=== PATIENT | male | born 2000 | race African-American/Black ===

== ENCOUNTER 2018-09-28 16:48 | Emergency (ER) | payer OTHER ==
[2018-09-28] MEDS ORDERED: LORazepam 2 MG/ML VIAL (J2060) IV STA (16:59)
[2018-09-28] MEDS ORDERED: NS 1,000 ML IV ONE (17:00)
[2018-09-28 17:25] LABS: BASO # 0.1 10^3/uL (0.0-0.2); BASO % 0.4 % (0.0-1.0); EOS # 0.1 10^3/uL (0.0-0.50); EOS % 0.7 % (0.0-3.0); HEMATOCRIT 44.1 % (42.0-52.0); HEMOGLOBIN 14.7 g/dl (13.5-17.5); LYMPH # 1.9 10^3/uL (1.5-6.5); LYMPH % 14.2 % (24.0-44.0); MEAN CORPUSCULAR HEMOGLOBIN 26.8 pg (27.0-33.0); MEAN CORPUSCULAR HGB CONC 33.3 g/dl (32.0-36.5); MEAN CORPUSCULAR VOLUME 80.3 fl (80.0-96.0); MONO # 1.2 10^3/uL (0.0-0.8); MONO % 8.9 % (0.0-5.0); NEUTROPHILS # 10.3 10^3/uL (1.8-7.7); NEUTROPHILS % 75.7 % (36.0-66.0); PLATELET COUNT, AUTOMATED 221 10^3/uL (150-450); RED BLOOD COUNT 5.49 10^6/uL (4.30-6.10); WHITE BLOOD COUNT 13.6 10^3/uL (4.0-10.0)
--- NOTE | 2018-09-28 17:35 | REP ---
Clinical: Left-sided chest pain . Comparison: None . Findings: The mediastinum and cardiac silhouette are stable and within normal limits for portable technique. The lung soto are clear without acute consolidation, effusion, or pneumothorax. Skeletal structures are intact. Impression: No acute cardiopulmonary process appreciated. Electronically Signed by Sebastián Hinkle MD 09/28/2018 05:26 P
[2018-09-28 17:44] LABS: BLOOD UREA NITROGEN 18 MG/DL (7-18); CALCIUM LEVEL 9.7 MG/DL (8.5-10.1); CARBON DIOXIDE LEVEL 24 MEQ/L (21-32); CHLORIDE LEVEL 105 MEQ/L (98-107); CREATININE FOR GFR 1.36 MG/DL (0.70-1.30); GLUCOSE, FASTING 93 MG/DL (70-100); POTASSIUM SERUM 3.5 MEQ/L (3.5-5.1); SODIUM LEVEL 141 MEQ/L (136-145)
[2018-09-28 18:15] VITALS: BP 107/55
--- NOTE | 2018-09-28 19:23 | ECGEPIP ---
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
== END 2018-09-28 18:35 | disposition home or self-care (01) ==
LOC: EDBD 16:48 → M ED 16:48
DX: R10.11 Right upper quadrant pain (principal); R06.4 Hyperventilation
CPT/HCPCS: 71045; 80048; 85025; 93005; 96374; 99284; J2060

== ENCOUNTER 2018-09-30 17:43 | Inpatient (IN) | payer OTHER ==
[~2018-09-30] VITALS: Ht 182.9 cm; Wt 68.2 kg
[2018-09-30] MEDS ORDERED: HYDR-3363 PO ×2 (17:55→21:03)
[2018-09-30] MEDS ORDERED: LEXA1TAB PO (17:55)
[2018-09-30 18:45] LABS: HEMOGLOBIN 14.5 g/dl (13.5-17.5); MEAN CORPUSCULAR HEMOGLOBIN 27.1 pg (27.0-33.0); MEAN CORPUSCULAR VOLUME 82.1 fl (80.0-96.0); PLATELET COUNT, AUTOMATED 215 10^3/uL (150-450); RED BLOOD COUNT 5.36 10^6/uL (4.30-6.10); WHITE BLOOD COUNT 8.6 10^3/uL (4.0-10.0)
[2018-09-30 19:06] LABS: AMPHETAMINES LEVEL URINE NEGATIVE (NEGATIVE); BARBITURATES URINE NEGATIVE (NEGATIVE); BENZODIAZEPINES URINE NEGATIVE (NEGATIVE); CANNABINOIDS URINE NEGATIVE (NEGATIVE); COCAINE METABOLITE URINE NEGATIVE (NEGATIVE); METHADONE URINE NEGATIVE (NEGATIVE); OPIATES URINE NEGATIVE (NEGATIVE); PHENCYCLIDINE URINE NEGATIVE (NEGATIVE)
[2018-09-30 19:32] LABS: ACETAMINOPHEN LEVEL < 2.0 UG/ML (10.0-30.0); ALBUMIN 4.5 GM/DL (3.2-5.2); ALT/SGPT 19 U/L (12-78); BILIRUBIN,DIRECT 0.1 MG/DL (0.0-0.2); BILIRUBIN,TOTAL 0.6 MG/DL (0.2-1.0); BLOOD UREA NITROGEN 15 MG/DL (7-18); CARBON DIOXIDE LEVEL 31 MEQ/L (21-32); CHLORIDE LEVEL 105 MEQ/L (98-107); CREATININE FOR GFR 1.12 MG/DL (0.70-1.30); ETHYL ALCOHOL (ETHANOL) < 0.003 % (0.000-0.010); GLUCOSE, FASTING 84 MG/DL (70-100); SALICYLATE LEVEL < 1.7 MG/DL (5.0-30.0); SODIUM LEVEL 140 MEQ/L (136-145); TOTAL PROTEIN 7.4 GM/DL (6.4-8.2)
[2018-09-30] MEDS ORDERED: MAALOX 30 ML SUSP *UDC PO PRN (21:45)
[2018-09-30] MEDS ORDERED: traZODone 50 MG TAB PO PRN (21:45)
[2018-09-30] MEDS ORDERED: ACETAMINOPHEN TAB 650MG DOSE (2X325MG) PO PRN (21:45)
[2018-09-30] MEDS ORDERED: MOM 30ML SUSPENSION UDC PO PRN (21:45)
--- NOTE | 2018-09-30 22:17 | ECGEPIP ---
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
[2018-09-30 23:57] VITALS: BP 124/65
[2018-10-01] MEDS ORDERED: NICOTINE 21MG/24HR 1 EA TRANSDERMAL TD PRN
[2018-10-01 06:33] VITALS: BP 121/71
--- NOTE | 2018-10-01 07:18 | ECGEPIP ---
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
[2018-10-01 12:00] VITALS: BP 116/62
--- NOTE | 2018-10-01 12:32 | MHHPEPDOC ---
General Date Of Admission: Sep 30, 2018 Legal Status: 9.39 Chief Complaint "I had a panic attack and was feeling suicidal." History of Present Illness HISTORY OF THE PRESENT ILLNESS: Patient is a 17 -year-old , AD, male, with a history of depression/anxiety who was brought to ED by escort due to endorsing a panic attack the night prior with lightheadedness, dizziness, and SI secondary to multiple psychosocial stresses. Pt stated in the ED that he is involved in a CPS case with his step-mother for custody of his younger siblings b/c he believes she is an unfit parent that yells a lot at them. Also stated, a childhood friend committed suicide over the weekend which caused SI briefly due to wanting to know how his friend felt before he , fiance breaking up with him recently due to not wanting to be apart of [place] lifestyle. Per ED pt reportedly researching ways to OD on his current med lexapro and vistaril which pt stated he was looking up to know how much he could take safely without overdosing and no to commit suicide. He endorsed insomnia due to no longer talking to his fiance on the phone while falling asleep at night. Psychiatric Review of Systems Depression (2 or more weeks): depressed mood, insomnia/hypersomnia (insomnia), difficulty concentrating, suicidal thoughts Tamar (4 or more days of): denies Psychosis: denies PTSD: denies Anxiety: situational anxiety, stressor related anxiety, panic attacks Anxiety/ 6 months or more of: restlessness, keyed up, difficulty concentrating, irritability, sleep disturbance Past Psychiatric History Previous Psychiatric Diagnosis: depression, panic attack Previous Psychiatric Admissions: denies Suicide Attempts: denies Psychiatric Follow-up: [facility] Psychiatric medications: lexapro, vistaril Past Medical History Medical Problems denies Head Injury: No Seizures: No Hospitalizations: No Surgeries: No Family Medical/Psychiatric HX Medical Problems noncontributory Psychiatric Disorders: Yes (mother- depression, anxiety) Addiction: No Suicide Attemps/Completions: No Addiction History nicotine (vapes daily) Social History Childhood: Born and raised in [place], adopted by aunt and uncle at age 1 due to mother leaving for the and father being incarcerated. States he had a good childhood. had several close friends and apart of cheerleading squad in high school. 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 Social Support: fiance,, aunt, uncle, friends [place], [place] Legal: cps case with his step-mother for custody of his young siblings due to belief she's an unfit parent Marital: single, never Mental Status Examination General Appearance: well groomed, appears stated age, hospital scubs/clothing Build: average Demeanor: average, withdrawn Eye Contact: average Activity: average, anxious Behavior: cooperative Speech: clear, spontaneous, reg/rate,rhythm,volume Mood: anxious, irritable Mood fine Affect: congruent, anxious Thought Process: logical/linear, intact, other (worrisome thoughts) Thought Content (Delusions): none reported, denies SI, HI, AVH Thought Content (Other): none reported, appropriate Thought Content (Aggressive): none reported Perception (Hallucinations): none reported Perception (Other): none reported Cognition (Impairment of): none reported Cognition(Intelligence Est.): average Oriented: Awake, Alert, Oriented times three Insight: fair Judgment: Fair Psychosis: Denies Diagnoses Anxiety d/o unspecified Panic d/o w/o agoraphobia R/O adjustment d/o with anxiety and depression Assessment Pt seen and states he here b/c "my unit believes I'm suicidal." When asked admits he has had thoughts that have crossed his mind in the past of falling asleep and not waking up but states "I would not kill myself." States he last had passive SI 2 nights ago mostly b/c he just wanted go sleep due to having insomnia secondary to fighting with my mom and fiance. States he feels fine today and just wants to go home and call his siblings. Endorses panic attacks and states vistaril is helpful. Denies SI/HI, hallucinations, delusions. Would like to restart his outpatient meds as the are beneficial. Feels safe here. Initial Treatment Plan 1. Patient was admitted on a 9.39 status. 2. Complete history was obtained. 3. With patients permission, family will be contacted and database will be expanded. 4. Patients medication regimen will be reviewed and changed accordingly. 5. Patient will be provided with protected environment. 6. Patient will be treated with individual, group, and milieu therapies. 7. Patient will receive supportive psych-education. 8. Discharge planning will commence immediately. 9. Outpatient follow-up treatment will be strongly recommended. 10. The initial treatment plan will focus initially on: * Depression. * Risk for suicide. * Substance abuse. 11. restart lexapro and vistaril ESTIMATED LENGTH OF STAY: 3-5 DAYS. TIME SPENT COUNSELING AND COORDINATING INITIAL CARE: 60 minutes. Vital Signs Vital Signs Date Time Temp Pulse Resp B/P (MAP) Pulse Ox O2 Delivery O2 Flow Rate FiO2 10/01/18 08:09 Room Air 10/01/18 06:33 98.0 70 14 121/71 (88) 09/30/18 23:57 99 Laboratory Data 24H Labs Laboratory Tests 2 09/30/18 18:32: Nucleated Red Blood Cells % (auto) 0.0, Anion Gap 4L, Calcium Level 9.0, Aspartate Amino Transf (AST/SGOT) 19, Alanine Aminotransferase (ALT/SGPT) 19, Alkaline Phosphatase 115, Total Bilirubin 0.6, Direct Bilirubin 0.1, Total Protein 7.4, Albumin 4.5, Albumin/Globulin Ratio 1.55, Thyroid Stimulating Hormone (TSH) 1.350, Salicylates Level < 1.7L, Acetaminophen Level < 2.0L, Ethyl Alcohol Level < 0.003 09/30/18 18:35: Urine Amphetamines Screen NEGATIVE, Urine Benzodiazepines Screen NEGATIVE, Urine Opiates Screen NEGATIVE, Urine Methadone Screen NEGATIVE, Urine Barbiturates Screen NEGATIVE, Urine Phencyclidine Screen NEGATIVE, Urine Cocaine Metabolite Screen NEGATIVE, Urine Cannabinoids Screen NEGATIVE CBC/BMP Laboratory Tests 09/30/18 18:32 Red Blood Count 5.36, Mean Corpuscular Volume 82.1, Mean Corpuscular Hemoglobin 27.1, Mean Corpuscular Hemoglobin Concent 33.0, Red Cell Distribution Width 12.6 Medications Scheduled Escitalopram Oxalate (Lexapro) 10 Mg Tab, 10 MG PO DAILY, (Reported) Scheduled PRN Hydroxyzine HCl (Hydroxyzine HCl) 25 Mg Tab, 25 MG PO TID PRN for ANXIETY, (Reported) Allergies Coded Allergies: Penicillins (Verified Allergy, Unknown, 09/28/18) albuterol (Verified Adverse Reaction, Intermediate, INCREASE hr, 09/30/18) CHANTAL MIRELES DO Oct 01, 2018 12:32
--- NOTE | 2018-10-01 12:58 | HPE ---
DATE OF ADMISSION: 10/01/2018 CHIEF COMPLAINT: Inpatient mental health history and physical for hospitalist group. HISTORY: Talita Padron was admitted with suicidal ideation. PAST MEDICAL HISTORY: Essentially benign. He says he has a history of asthma, but I think it is more likely psychiatric origin. He has never been hospitalized for this or use any inhalers. SOCIAL HISTORY: He smokes by vaping daily. 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 FAMILY HISTORY: Mother has a history of depression and anxiety. REVIEW OF SYSTEMS: No hemoptysis, cough, shortness of breath with exertion, chest pain, bowel or genitourinary symptoms PHYSICAL EXAMINATION: VITAL SIGNS: Per flow sheet. HEENT: Unremarkable. LUNGS: Clear. HEART: Regular without murmur. ABDOMEN: Soft, nontender. No masses. No peripheral edema. Good distal pulses. IMPRESSION: No significant medical problems. He has carries a diagnosis of asthma, but it is probably a panic attack, so I do not think he needs an inhaler nor any further medical evaluation for this. Admission chest x-ray was unremarkable.
[2018-10-01 18:00] VITALS: BP 107/56
[2018-10-01 21:00] VITALS: BP 114/62
[2018-10-02 06:35] VITALS: BP 110/61
[2018-10-02] MEDS ORDERED: HYDR-3363 PO (09:04)
[2018-10-02] MEDS ORDERED: LEXA1TAB PO (09:04)
--- NOTE | 2018-10-02 09:05 | MHDSPDOC ---
[facility] Discharge Summary Discharge Summary DATE OF ADMISSION: Sep 30, 2018 at 9:31 pm DATE OF DISCHARGE: October 02, 2018 DISCHARGE DIAGNOSES: Anxiety d/o unspecified Panic d/o w/o agoraphobia R/O adjustment d/o with anxiety and depression REASON FOR ADMISSION: Patient is a 17 -year-old , AD, male, with a history of depression/anxiety who was brought to ED by escort due to endorsing a panic attack the night prior with lightheadedness, dizziness, and SI secondary to multiple psychosocial stresses. Pt stated in the ED that he is involved in a CPS case with his step-mother for custody of his younger siblings b/c he believes she is an unfit parent that yells a lot at them. Also stated, a childhood friend committed suicide over the weekend which caused SI briefly due to wanting to know how his friend felt before he , fiance breaking up with him recently due to not wanting to be apart of lifestyle. Per ED pt reportedly researching ways to OD on his current med lexapro and vistaril which pt stated he was looking up to know how much he could take safely without overd osing and no to commit suicide. He endorsed insomnia due to no longer talking to his fiance on the phone while falling asleep at night. CONSULTANTS INVOLVED: none TREATMENT AND PROGRESS ON THE UNIT : Pt was admitted to [facility], seen for psychiatric assessment and restarted on his outpatient medication lexapro 10mg daily and vistaril 25mg q6hr prn anxiety. He was provided trazodone 50mg qhs prn insomnia. Pt found his medications beneficial and tolerated them well. He attended groups daily during his stay. His symptoms improved with treatment. On day of discharge he denied depression, anxiety, insomnia, SI/HI, hallucinations, delusions. He was discharged home after [facility] meeting with follow-up at [facility]. He felt safe for discharge. DISCHARGE ASSESSMENT: Pt seen and states he feels good and is greatly looking forward to going home with his Dalia today. He appears euthymic, full, and bright. He denies anxiety and panic. Future oriented toward face timing with his younger siblings once he's d/c as is very close to them and cares for them a lot. Also motivated to continue to work to get custody of 2y/o sister from st ep-mother thru CPS. States he attended groups during his stay and found them beneficial. States his mes are beneficial and he's tolerating them well. Slept well last night. Denies depression, anxiety, insomnia, SI/HI, hallucinations, delusions. Feels safe to be d/c home with Dalia. MENTAL STATUS EXAMINATION ON DISCHARGE: General Appearance: well groomed, appears stated age, hospital scrubs/clothing Build: average Demeanor: average Eye Contact: average Activity: average Behavior: cooperative Speech: clear, spontaneous, reg/rate,rhythm,volume Mood: euthymic, full, bright Mood good Affect: euthymic, full, bright Thought Process: logical/linear, intact Thought Content (Delusions): none reported, denies SI, HI, AVH Thought Content (Other): none reported, appropriate Thought Content (Aggressive): none reported Perception (Hallucinations): none reported Perception (Other): none reported Cognition (Impairment of): none reported Cognition(Intelligence Est.): average Oriented: Awake, Alert, Oriented times three Insight: good Judgment: good Psychosis: Denies MEDICATIONS ON DISCHARGE: lexapro 10mg daily vistaril 25mg q6hr prn anxiety PLAN/FOLLOWUP ARRANGEMENTS: D/c home with Dalia with follow-up at [facility]. The amount of time spent in the coordination of care for this patient was appr oximately 30 minutes. Vital Signs/I&Os Vital Signs Date Time Temp Pulse Resp B/P (MAP) Pulse Ox O2 Delivery O2 Flow Rate FiO2 10/02/18 06:35 98.3 62 14 110/61 (77) 10/01/18 08:09 Room Air 09/30/18 23:57 99 Medications Scheduled Escitalopram Oxalate (Lexapro) 10 Mg Tab, 10 MG PO DAILY, (Reported) Scheduled PRN Hydroxyzine HCl (Hydroxyzine HCl) 25 Mg Tab, 25 MG PO TID PRN for ANXIETY, (Reported) Allergies Coded Allergies: Penicillins (Verified Allergy, Unknown, 09/28/18) albuterol (Verified Adverse Reaction, Intermediate, INCREASE hr, 09/30/18) CHANTAL MIRELES DO Oct 02, 2018 9:05 am
== END 2018-10-02 13:50 | disposition home or self-care (01) | DRG 880 ==
LOC: M ED 17:43 → M ED INP 21:31 → M PSY 22:52
PROVIDERS: ADMIT Psychiatry & Neurology Psychiatry; ATTEND Psychiatry & Neurology Psychiatry
DX: F41.9 Anxiety disorder, unspecified (principal); R45.851 Suicidal ideations; F40.01 Agoraphobia with panic disorder; F43.23 Adjustment disorder with mixed anxiety and depressed mood; Z88.0 Allergy status to penicillin; Z88.8 Allergy status to other drugs, medicaments and biological substances; J45.909 Unspecified asthma, uncomplicated

== ENCOUNTER 2018-10-15 12:36 | Emergency (ER) | payer OTHER ==
[~2018-10-15 12:36] MED LIST: HYDR-3363 PO; LEXA1TAB PO
[2018-10-15 13:55] LABS: BASO % 0.5 % (0.0-1.0); EOS # 0.1 10^3/uL (0.0-0.50); EOS % 0.9 % (0.0-3.0); HEMOGLOBIN 14.5 g/dl (13.5-17.5); LYMPH # 1.6 10^3/uL (1.5-6.5); LYMPH % 18.6 % (24.0-44.0); MEAN CORPUSCULAR HEMOGLOBIN 26.7 pg (27.0-33.0); MEAN CORPUSCULAR VOLUME 80.9 fl (80.0-96.0); MONO # 0.8 10^3/uL (0.0-0.8); MONO % 9.3 % (0.0-5.0); NEUTROPHILS # 6.2 10^3/uL (1.8-7.7); NEUTROPHILS % 70.6 % (36.0-66.0); PLATELET COUNT, AUTOMATED 194 10^3/uL (150-450); RED BLOOD COUNT 5.44 10^6/uL (4.30-6.10); WHITE BLOOD COUNT 8.7 10^3/uL (4.0-10.0)
--- NOTE | 2018-10-15 14:09 | REP ---
Chest one-view HISTORY: Chest pain Comparison: 09/28/2018 The lungs are clear. The heart is normal in size. The pulmonary vasculature is normal in appearance. Impression: No acute disease. Electronically Signed by Rajan Tsang MD 10/15/2018 02:00 P
[2018-10-15 14:22] LABS: BLOOD UREA NITROGEN 16 MG/DL (7-18); CALCIUM LEVEL 9.4 MG/DL (8.5-10.1); CARBON DIOXIDE LEVEL 27 MEQ/L (21-32); CHLORIDE LEVEL 107 MEQ/L (98-107); CPK CREATINE PHOSPHOKINASE 137 U/L (39-308); CREATININE FOR GFR 1.01 MG/DL (0.70-1.30); FREE T4 1.08 NG/DL (0.78-1.33); GLUCOSE, FASTING 86 MG/DL (70-100); POTASSIUM SERUM 3.9 MEQ/L (3.5-5.1); SODIUM LEVEL 140 MEQ/L (136-145); THYROID STIMULATING HORMONE 0.784 uIU/ML (0.463-3.98); TROPONIN I < 0.02 NG/ML (< 0.10)
[2018-10-15 16:29] LABS: AMPHETAMINES LEVEL URINE NEGATIVE (NEGATIVE); BARBITURATES URINE NEGATIVE (NEGATIVE); BENZODIAZEPINES URINE NEGATIVE (NEGATIVE); CANNABINOIDS URINE NEGATIVE (NEGATIVE); COCAINE METABOLITE URINE NEGATIVE (NEGATIVE); METHADONE URINE NEGATIVE (NEGATIVE); OPIATES URINE NEGATIVE (NEGATIVE); PHENCYCLIDINE URINE NEGATIVE (NEGATIVE)
[2018-10-15] MEDS ORDERED: IBUPROFEN 600 MG TAB PO ONE (16:45)
[2018-10-15 17:07] VITALS: BP 111/65
--- NOTE | 2018-10-16 21:32 | ECGEPIP ---
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
== END 2018-10-15 17:09 | disposition home or self-care (01) ==
LOC: M ED 12:36
DX: F41.0 Panic disorder [episodic paroxysmal anxiety] (principal); R07.89 Other chest pain; R00.1 Bradycardia, unspecified; F32.9 Major depressive disorder, single episode, unspecified; F41.9 Anxiety disorder, unspecified; Z88.0 Allergy status to penicillin; Z88.8 Allergy status to other drugs, medicaments and biological substances

== ENCOUNTER → 2018-10-22 | Outpatient (CLI) | payer OTHER ==
--- NOTE | 2018-10-22 13:29 | PFTRPT ---
Site: [facility], [address] [place] [address], [id number] ID: [id number] Name: IRINA BLANCA Visit Date: 10/22/2018 Second ID: [id number] Referring Doctor: Marcos Barrow Reviewing Doctor: Kofi Sandy MD Body Former: Francis BRAUN RRT Age: 18 : 2000 Sex: Male Race: Black Height: 72.00 Inches Weight: 145.00 Lbs BSA: 1.86 Order IDs: [id number] Requested Test(s): <RESP-PFT.DLCO> Diagnosis: ASTHMA test meet the ATS standards for acceptability and repeatability. Pt was given four puffs of albuterol for postbronchodilator. Review Status: Not Reviewed Pre-Bronch Post-Bronch Pred Actual %Pred Actual %Chng SPIROMETRY FVC (L) 5.05 5.78 114 5.57 -3 FEV1 (L) 4.29 5.00 116 4.89 -2 FEV1/FVC (%) 86 86 100 88 1 FEF 25% (L/sec) 8.12 7.62 93 7.53 -1 FEF 50% (L/sec) 5.36 5.86 109 5.51 -6 FEF 75% (L/sec) 2.27 3.23 142 3.28 1 FEF 25-75% (L/sec) 4.80 5.37 111 5.11 -4 FEF Max (L/sec) 10.55 7.79 73 8.89 14 FIVC (L) 5.36 5.21 -2 FIF 50% (L/sec) 5.76 5.02 87 5.43 8 FIF Max (L/sec) 5.13 5.54 7 MVV (L/min) 197 118 59 Expiratory Time (sec) 6.58 4.65 -29 Back Extrap Vol (L) 0.18 0.18 1 Time To FEFmax (sec) 0.223 0.122 -45 LUNG VOLUMES SVC (L) 5.75 5.57 96 IC (L) 3.75 3.59 95 ERV (L) 2.00 1.98 99 TGV (L) 3.52 3.92 111 RV (Pleth) (L) 1.52 1.94 127 TLC (Pleth) (L) 7.27 7.51 103 RV/TLC (Pleth) (%) 20 26 129 DIFFUSION DLCOunc (ml/min/mmHg) 38.43 27.15 70 DL/VA (ml/min/mmHg/L) 5.29 3.93 74 VA (L) 7.27 6.92 95 BHT (sec) 10.21 IVC (L) 5.33 TLC (SB) (L) 7.07 AIRWAYS RESISTANCE Raw (cmH2O/L/s) 1.45 0.92 63 Gaw (L/s/cmH2O) 1.03 1.10 107 sRaw (cmH2O*s) 4.76 3.75 78 sGaw (1/cmH2O*s) 0.20 0.27 135
== END ==
LOC: M CARPUL 11:09
PROVIDERS: ATTEND Clinical Nurse Specialist Psychiatric/Mental Health, Adult
DX: J45.40 Moderate persistent asthma, uncomplicated (principal)

== ENCOUNTER 2020-04-26 10:59 | Emergency (ER) | payer OTHER ==
[~2020-04-26] VITALS: Ht 182.9 cm; Wt 66.6 kg
[2020-04-26] MEDS ORDERED: KETOROLAC 30 MG/ML 1ML VIAL IV ONE (11:30)
[2020-04-26] MEDS ORDERED: NS 1,000 ML IV ONE (11:30)
[2020-04-26] MEDS ORDERED: ONDANSETRON 4MG/2ML VIAL IV ONE (11:30)
[2020-04-26 12:28] LABS: BASO % 0.5 % (0.0-1.0); EOS # 0.1 10^3/uL (0.0-0.5); EOS % 1.8 % (0.0-3.0); HEMATOCRIT 51.4 % (42.0-52.0); HEMOGLOBIN 16.3 g/dl (13.5-17.5); LYMPH % 12.6 % (24.0-44.0); MEAN CORPUSCULAR HEMOGLOBIN 26.5 pg (27.0-33.0); MEAN CORPUSCULAR HGB CONC 31.7 g/dl (32.0-36.5); MEAN CORPUSCULAR VOLUME 83.6 fl (80.0-96.0); MONO # 0.8 10^3/uL (0.0-0.8); MONO % 10.8 % (0.0-5.0); NEUTROPHILS # 5.7 10^3/uL (1.5-8.5); NEUTROPHILS % 73.8 % (36.0-66.0); PLATELET COUNT, AUTOMATED 172 10^3/uL (150-450); RED BLOOD COUNT 6.15 10^6/uL (4.30-6.10); WHITE BLOOD COUNT 7.8 10^3/uL (4.0-10.0)
[2020-04-26 13:00] LABS: ALBUMIN 4.8 GM/DL (3.2-5.2); BILIRUBIN,DIRECT 0.1 MG/DL (0.0-0.2); BILIRUBIN,TOTAL 0.8 MG/DL (0.2-1.0); TOTAL PROTEIN 8.6 GM/DL (6.4-8.2)
--- NOTE | 2020-04-26 13:44 | REP ---
INDICATION: RUQ tenderness. COMPARISON: None. TECHNIQUE: Real-time sonographic evaluation of right upper quadrant performed. FINDINGS: The gallbladder demonstrates no evidence of intraluminal sludge or calculi, wall thickening or pericholecystic fluid. There is no intrahepatic or extrahepatic biliary dilatation, common bile duct measures 3 mm in maximum diameter. The liver and pancreas demonstrates homogeneous echotexture with no gross mass. The right kidney demonstrates no hydronephrosis, with a normal size of 10.2 cm in length. No free fluid is seen. IMPRESSION: Negative right upper quadrant ultrasound. <Electronically signed by Jason Guzman > 04/26/20 1811
[2020-04-26] MEDS ORDERED: ISOVUE-370 76% 100ML VIAL As Ordered ONE (14:24)
--- NOTE | 2020-04-26 15:07 | REP ---
INDICATION: right sided abd pain r/o infectious etiology COMPARISON: None. TECHNIQUE: CT Scan of the abdomen and pelvis was performed with intravenous administration of 100 cc of Isovue 370, without oral contrast. FINDINGS: Lung bases: Unremarkable. Liver: Normal Gallbladder: Unremarkable. Spleen: Normal. Adrenals: Normal. Pancreas: Normal. Kidneys: Normal. Small and large bowel: Unremarkable. Free fluid: Mild free fluid in the pelvis. Abdominal aorta: No aneurysm or dissection. Adenopathy: None. Appendix: Not inflamed. Osseous structures: Unremarkable. Pelvis: No mass. Mild free fluid. IMPRESSION: No evidence of appendicitis. No free air. Mild free fluid in the pelvis. Otherwise negative CT abdomen and pelvis. <Electronically signed by Jason Guzman > 04/26/20 [id number]
[2020-04-26 15:42] VITALS: BP 128/82
== END 2020-04-26 15:44 | disposition home or self-care (01) ==
LOC: M ED 10:59
DX: R10.9 Unspecified abdominal pain (principal); R11.0 Nausea; Z88.0 Allergy status to penicillin; Z88.8 Allergy status to other drugs, medicaments and biological substances
CPT/HCPCS: 74177; 76705; 80047; 80076; 81001; 83690; 85025; 96361; 96374; 96375; 99284; J1885; J2405; Q9967

== ENCOUNTER 2020-11-09 11:31 | Emergency (ER) | payer OTHER ==
[~2020-11-09] VITALS: Ht 180.3 cm; Wt 68.7 kg
[2020-11-09] MEDS ORDERED: NS 1,000 ML IV ONE (11:55)
[2020-11-09] MEDS ORDERED: KETOROLAC 30 MG/ML 1ML VIAL IV ONE (11:55)
[2020-11-09 12:21] LABS: BASO % 0.4 % (0.0-1.0); EOS % 0.6 % (0.0-3.0); HEMATOCRIT 43.6 % (42.0-52.0); HEMOGLOBIN 13.8 g/dl (13.5-17.5); LYMPH # 1.1 10^3/uL (1.5-5.0); LYMPH % 14.8 % (24.0-44.0); MEAN CORPUSCULAR HEMOGLOBIN 26.5 pg (27.0-33.0); MEAN CORPUSCULAR HGB CONC 31.7 g/dl (32.0-36.5); MEAN CORPUSCULAR VOLUME 83.7 fl (80.0-96.0); MONO % 13.5 % (2.0-8.0); NEUTROPHILS # 5.1 10^3/uL (1.5-8.5); NEUTROPHILS % 70.4 % (36.0-66.0); PLATELET COUNT, AUTOMATED 171 10^3/uL (150-450); RED BLOOD COUNT 5.21 10^6/uL (4.30-6.10); WHITE BLOOD COUNT 7.2 10^3/uL (4.0-10.0)
--- NOTE | 2020-11-09 12:27 | REP ---
INDICATION: left flank pain, hematuria, weak stream. COMPARISON: 04/26/2020 a contrast-enhanced exam TECHNIQUE: There is no evidence of an acute fracture or destructive osseous lesion. The mortise is within normal limits FINDINGS: The lung bases are clear. Limited evaluation of the solid intra-organs and gallbladder show no abnormalities. Limited evaluation of the pancreas, adrenal glands, and kidneys show no abnormalities. There is no nephroureterolithiasis, hydronephrosis, or hydroureter. There are no urinary bladder calcifications. There is no free fluid or free air. The appendix is within normal limits. Bone window technique throughout the examination shows the osseous structures to be within normal limits. IMPRESSION: CT findings are within normal limits. <Electronically signed by Destin Mora > 11/09/20 1540
[2020-11-09 12:49] LABS: BLOOD UREA NITROGEN 9 MG/DL (7-18); CALCIUM LEVEL 9.7 MG/DL (8.5-10.1); CARBON DIOXIDE LEVEL 30 MEQ/L (21-32); CHLORIDE LEVEL 106 MEQ/L (98-107); CREATININE FOR GFR 0.98 MG/DL (0.70-1.30); GLOMERULAR FILTRATION RATE > 60.0 (>60); GLUCOSE, FASTING 84 MG/DL (70-100); POTASSIUM SERUM 3.8 MEQ/L (3.5-5.1); SODIUM LEVEL 140 MEQ/L (136-145)
--- NOTE | 2020-11-09 14:34 | REP ---
INDICATION: left testicular pain. COMPARISON: None. TECHNIQUE: Real-time sonographic evaluation of scrotum and contents performed. FINDINGS: The testicles are normal in size and echotexture, right testicle measuring 4.8 x 2.1 x 2.8 cm and left testicle 4.2 x 1.9 x 2.9 cm. There is no testicular mass or torsion. Blood flow is seen in each testicle with duplex Doppler evaluation. 2 cysts are seen in the head of the right epididymis, measuring 5 mm and 3 mm in diameter. IMPRESSION: No testicular mass or torsion. <Electronically signed by Jason Guzman > 11/09/20 [id number]
[2020-11-09 15:00] VITALS: BP 120/62
== END 2020-11-09 15:26 | disposition home or self-care (01) ==
LOC: M ED 11:31
DX: N39.0 Urinary tract infection, site not specified (principal); F17.200 Nicotine dependence, unspecified, uncomplicated
CPT/HCPCS: 74176; 76870; 80048; 81001; 85025; 87086; 93976; 96374; 99284; J1885